=== PATIENT | male | born 2000 | race Caucasian/White ===

== ENCOUNTER 2018-04-23 18:55 | Emergency (ER) | payer OTHER, MEDICAID ==
[2018-04-23 19:04] VITALS: BP 108/63
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
== END 2018-04-23 19:50 | disposition home or self-care (01) ==
DX: S06.0X0A Concussion without loss of consciousness, initial encounter (principal); V49.49XA Driver injured in collision with other motor vehicles in traffic accident, initial encounter; Y92.410 Unspecified street and highway as the place of occurrence of the external cause